=== PATIENT | female | born 1980 | race Caucasian/White ===

== ENCOUNTER 2018-09-26 12:50 | Emergency (ER) | payer MEDICAID, SELFPAY ==
[2018-09-26 12:52] VITALS: BP 120/89; PULSE 96; RESP 16; TEMP 36.4; O2SAT 99; BMI 19.0
--- NOTE | 2018-09-26 14:17 | ED.RN ---
PT NOT IN ROOM WHEN THIS RN RETURNED, PT HAD BEEN STATING SHE DID NOT WANT TO STAY, HAD TO SET OFF BLOCKER SON IN 30 MIN. MD AND LABORER ORCHARD NOTIFIED. PT HAD BEEN OBSERVED LEAVING DEPT BY VOLUNTEER.
[2018-09-26 14:25] LABS: Absolute Lymphocyte Count 3.25 X10^3/ul (0.83-4.51); Absolute Neutrophil Count 9.3 X10^3/uL (2.0-7.7); Basophil# 0.08 X10^3/uL; Basophil% 0.6 % (0-1); Eosinophil# 0.21 X10^3/uL; Eosinophils% 1.5 % (0-5); Hematocrit 45.8 % (37-47); Hemoglobin 14.9 g/dl (12.0-15.0); Lymphocyte # 3.25 X10^3/ul (4.0); Lymphocyte % 23.7 % (19-41); Mean Corp Hgb Conc 32.5 g/gl (32-36); Mean Corpuscular Hgb 29.6 pg (27.0-32.0); Mean Corpuscular Volume 91.1 fL (81-99); Mean Platelet Vol. 9.7 fl (6.2-12.0); Monocyte# 0.88 X10^3/uL; Monocyte% 6.4 % (0-10); Neutrophil # 9.28 X10^3/uL (2.7-7.7); Neutrophil % 67.7 % (47-70); Platelet Count 329 K/mm3 (150-450); RBC Distribution Width CV 12.9 % (11.6-14.6); RBC Distribution Width SD 42.7 fl (35.1-43.9); Red Blood Count 5.03 M/mm3 (4.2-5.4); White Blood Count 13.7 K/mm3 (4.4-11.0)
[2018-09-26 14:27] LABS: Anion Gap 5 (5-15); BUN 10 mg/dL (7-18); BUN/Creat Ratio 11.6 RATIO (10-20); Calcium,Total 9.4 mg/dL (8.5-10.1); Chloride 104 mmol/L (98-107); Creatinine, Serum 0.86 mg/dL (0.55-1.02); EST Glomerular Filtration Rate 79 mL/min (>60); Est Glom Filt Rate - Afr Amer 96 mL/min (>60); Estimated Creatinine Clearance 76.41 ml/min; Glucose 86 mg/dL (74-106); Potassium 3.6 mmol/L (3.5-5.1); Sodium Level 138 mmol/L (136-145)
[2018-09-26 14:32] LABS: POSITIVE COUNT NO; POSITIVE DIFFERENTIAL NO; POSITIVE MORPHOLOGY NO
[2018-09-26 14:34] LABS: Pregnancy, Serum, hCG Quali. NEGATIVE Negative (0-9 Nonpreg)
--- NOTE | 2018-09-26 15:36 | ED.VISSUMM ---
- ER Visit Summary Date of Service: 09/26/18 Chief Complaint: Anxiety History of Present Illness: The patient is a 38 F who presents with increasing anxiety over the past month. Patient states she has been having more frequent anxiety and panic attacks. Patient states she has a history of bipolar disorder, schizophrenia, and anxiety. Patient states she has been under more stress because of her family situation. Patient denies any suicidal or homicidal ideations. Patient denies any auditory or visual hallucinations. Patient denies any paranoid ideations. Physical Examination: Vital signs are stable. Patient is afebrile. Patient is in no acute distress. Oral mucosa is pink and moist. Neck is supple. Trachea is midline. There is no JVD noted. There is no lymphadenopathy appreciated. Heart was regular rate and rhythm. Lungs are clear and equal bilateral. Abdomen is soft. Bowel sounds are normal. There is no tenderness. Cranial nerves II through XII are intact. There are no focal motor or sensory deficits noted. Patient does have a somewhat anxious mood and affect. Patient denies any suicidal homicidal ideations. Patient not having any visual or auditory hallucinations. Emergency Department Course and Treatment: Basic labs were ordered. Patient left the emergency department prior to completing treatment. Disposition: Left without completing treatment Impression: Acute anxiety This note was generated with [employer] dictation software. It may contain incorrect words, spelling, and punctuation that were not noted in review of the chart prior to signing ED Disposition - Plan for ED Patient: Disposition: Against Medical Advice Chief Complaint: Mental Health Diagnosis: Anxiety Referrals: Amber Metz NP-C [Primary Care Provider] -
--- NOTE | 2018-09-26 15:41 | ED.DCSUM_ITS ---
- ER Visit Summary Date of Service: 09/26/18 Chief Complaint: Anxiety History of Present Illness: The patient is a 38 F who presents with increasing anxiety over the past month. Patient states she has been having more frequent anxiety and panic attacks. Patient states she has a history of bipolar disorder , schizophrenia, and anxiety. Patient states she has been under more stress because of her family situation. Patient denies any suicidal or homicidal ideations. Patient denies any auditory or visual hallucinations. Patient denies any paranoid ideations. Physical Examination: Vital signs are stable. Patient is afebrile. Patient is in no acute distress. Oral mucosa is pink and moist. Neck is supple. Trachea is midline. There is no JVD noted. There is no lymphadenopathy appreciated. Heart was regular rate and rhythm. Lungs are clear and equal bilateral. Abdomen is soft. Bowel sounds are normal. There is no tenderness. Cranial nerves II through XII are intact. There are no focal motor or sensory deficits noted. Patient does have a somewhat anxious mood and affect. Patient denies any suicidal homicidal ideations. Patient not having any visual or auditory hallucinations. Emergency Department Course and Treatment: Basic labs were ordered. Patient left the emergency department prior to completing treatment. Disposition: Left without completing treatment Impression: Acute anxiety This note was generated with [employer] dictation software. It may contain incorrect words, spelling, and punctuation that were not noted in review of the chart prior to signing ED Disposition - Plan for ED Patient: Disposition: Against Medical Advice Chief Complaint: Mental Health Diagnosis: Anxiety Referrals: Amber Metz NP-C [Primary Care Provider] -
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
== END 2018-09-26 15:36 | disposition left against medical advice (07) ==
LOC: ED 13:53
PROVIDERS: Emergency Provider Emergency Medicine; Family Provider Nurse Practitioner Adult Health; PCP Nurse Practitioner Adult Health
DX: F41.9 Anxiety disorder, unspecified (principal); Z72.0 Tobacco use
CPT/HCPCS: 80048; 80320; 84703; 85025; 99281; G0480

== ENCOUNTER 2019-09-11 23:20 | Emergency (ER) | payer SELFPAY ==
[2019-09-11 23:22] VITALS: BP 118/76; PULSE 77; RESP 16; TEMP 37.1; O2SAT 97; BMI 19.3
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
[2019-09-11 23:33] VITALS: RESP 16
--- NOTE | 2019-09-12 | RAD_ITS ---
STUDY: X-RAY - BILATERAL RIBS WITH CHEST REASON FOR EXAM: Female, 39 years old. TECHNIQUE - RIBS: 2 views of bilateral ribs. TECHNIQUE - CHEST: Single PA view of the chest. COMPARISON: None. FINDINGS - RIBS : Normal visualized ribs without a demonstrated fracture. FINDINGS - CHEST: The lungs are clear and expanded. There is no demonstrated pleural abnormality. Normal size heart. Normal mediastinum and dorota. Normal visualized pulmonary arteries. Normal visualized aortic arch and descending thoracic aorta. Normal visualized thoracic spine. Normal visualized ribs, clavicles, and shoulders. There is no demonstrated abnormality of the visualized soft tissue structures of the upper abdomen. RAD/Ribs Shaun Min 4V w/PA Chest IMPRESSION: RIBS: Normal x-ray examination of bilateral ribs. CHEST: Normal x-ray examination of the chest. Electronically Signed: Harpal Tracy MD at 2:25 EST Tel , Service support ,
[2019-09-12] MEDS: Ondansetron ODT 4 MG Tablet PO (02:40)
[2019-09-12 02:46] VITALS: RESP 16
== END 2019-09-12 02:46 | disposition home or self-care (01) ==
PROVIDERS: Emergency Provider Emergency Medicine; Family Provider Nurse Practitioner Adult Health; PCP Nurse Practitioner Adult Health
DX: R07.81 Pleurodynia (principal); R10.10 Upper abdominal pain, unspecified; Y04.8XXA Assault by other bodily force, initial encounter; F17.200 Nicotine dependence, unspecified, uncomplicated
CPT/HCPCS: 71111; 99284

== ENCOUNTER 2019-09-11 23:47 | Outpatient (REF) | payer SELFPAY ==
[2019-09-11 23:22] VITALS: BMI 19.3
== END 2019-09-12 03:30 | disposition home or self-care (01) ==
LOC: EDREF 23:47
PROVIDERS: Family Provider Nurse Practitioner Adult Health; PCP Nurse Practitioner Adult Health
DX: Z04.41 Encounter for examination and observation following alleged adult rape (principal)

== ENCOUNTER 2020-07-20 14:38 | Emergency (ER) | payer MEDICAID, SELFPAY ==
--- NOTE | 2020-07-20 14:39 | ED.RN ---
hx of opiate addiction. requesting no narcotics. chadd sabillon, rn 1948
[2020-07-20 14:40] VITALS: BP 98/69; PULSE 81; RESP 14; TEMP 36.7; O2SAT 96; BMI 16.8
--- NOTE | 2020-07-20 15:28 | ED.VIS.GI ---
History of Present Illness Chief Complaint: Abd Pain Informant: Patient - Abdominal Pain/Flank Pain Onset: Hours - 2 Context: Sudden Onset - w/ gradual worsening Timing: Continuous Quality: Aching Location: LLQ Current Severity: Gone Maximum Severity: Severe Worsened by: Nothing Relieved by: - - Ibuprofen apparently - Nausea/Vomiting/Emesis GI Symptom: Negative for: Nausea, Vomiting - Diarrhea/Melena/Hematochezia GI Symptom: Negative for: Diarrhea, Melena, Hematochezia Associated Symptoms: Negative for: Dysuria, Frequency, Hematuria, Urgency Narrative: Patient states she has had pain in this area with ovarian cyst issues multiple times in the past, the pain became severe at one point here recently in the past couple hours since it started this time, so she came to the ER but not states the pain is gone and is wondering if it is okay that she goes home without any test and 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 Her menstrual cycles are usually a little irregular, her last one was supposed to start 2 days ago if it was regular, but it has not yet. She had had a bilateral tubal ligectomy in the past. She has both of her ovaries and has had cystectomies from the one on the left. Denies any recent illness, back pain, vomiting, fevers, diarrhea, urinary symptoms, vaginal discharge. Prior similar symptoms: Yes - ovarian cysts - Past Medical History (1) Ovarian cyst Status: Chronic Past Medical History - Allergies and Home Meds Allergies/Adverse Reactions: Allergies Opioids - Morphine Analogues Allergy (Verified 07/20/20 14:46) NEEDS FOLLOW-UP Primary Care Physician: Amber Metz NP, [employer] HELPER-C [Primary Care Provider] - Surgical History: - - Tubal. Ovarian cystectomy left. Lives: Spouse/ Significant Other Smoking Status: Current every day smoker Review of Systems General: Denies: Chills, Fever, Sweats Eyes: Denies: Visual changes - bilaterally, Diplopia ENT: Denies: Rhinorrhea, Sore throat Cardiovascular: Denies: Chest pain, Palpitations Respiratory: Denies: Dyspnea, Cough, Dyspnea on exertion Gastrointestinal: Reports: Abdominal pain. Denies: Nausea, Vomiting, Diarrhea, Melena, Hematochezia Genitourinary: Denies: Dysuria, Hematuria, Frequency Musculoskeletal: Denies: Back pain, Extremity Pain Skin: Denies: Rash, Wounds Neurological: Denies: Headache, Weakness, Numbness Physical Exam Vital Signs/Narrative: Vital Signs Temp Pulse Resp BP Pulse Ox 07/20/20 14:40 98.1 F 81 14 98/69 96 Inital Vital Signs reviewed: Yes General: Well nourished, Well developed, No Acute Distress - Well-appearing no distress Head: Normocephalic, Atraumatic Eyes: Perrl, EOMI ENT: Moist mucous membranes, No rhinorrhea Neck: Supple, Nontender Cardiovascular: Regular rate, Regular rhythm, No murmurs Respiratory: No distress, CTA bilaterally, Chest nontender Abdomen: Soft, Nondistended, Normal bowel sounds, No masses, Tender - Mild, just medial to the left ASIS.. Negative for: Guarding, Rebound tenderness Back: Nontender, Normal Inspection. Negative for: CVA tenderness Extremities: Nontender, No edema Skin: Normal color, No rash Neurological: Alert, Oriented x3, Cranial nerves II-XII grossly intact, Normal Strength, Normal Sensation, Normal Gait Psychological: Normal affect, Normal Mood Diagnostic/Tx/Re-eval - Medical Decision Making Patient states she no longer has pain and would like to leave. She waited until I came to evaluate her. I advised that at the very least I would wait on a test here, because if it is positive given her recently missed cycle, she would be at high risk for a tubal . She understood that, and said I did not want to just leave because I thought that would be rude. Shortly after ordering the urine test, she eloped. Apparently she did not provide specimen for testing. I did not have the opportunity to discuss other possibilities with her, such as sentinel pain from torsion. Plan was going to be to observe her while we waited for urine testing in order to roughly evaluate for that. ED Disposition - Plan for ED Patient: Diagnosis: Left lower quadrant abdominal pain Referrals: Amber Metz NP, [employer] HELPER-C [Primary Care Provider] -
--- NOTE | 2020-07-20 16:52 | ED.RN ---
at [address] Lopez was in to examine pt. Pt stated i have to go to work at 4
== END 2020-07-20 15:50 | disposition home or self-care (01) ==
LOC: ED 15:38
PROVIDERS: Emergency Provider Emergency Medicine; PCP Nurse Practitioner Adult Health
DX: R10.32 Left lower quadrant pain (principal); F17.200 Nicotine dependence, unspecified, uncomplicated
CPT/HCPCS: 99283